=== PATIENT | female | born 1950 | race Two or more races ===

== ENCOUNTER → 2022-05-17 | Day surgery (SDC) | payer OTHER ==
[2022-05-15 13:38] LABS: Basophils # (auto) 0.1 10 ^3/uL (0-0.2); Basophils % (auto) 1.6 % (0.0-2.0); Eosinophils # (auto) 0.2 10 ^3/uL (0-0.8); Lymphocytes # (auto) 1.3 10 ^3/uL (0.4-5.4); Monocytes # (auto) 0.3 10 ^3/uL (0-1.3)
[2022-05-15 13:40] LABS: Eosinophils % (auto) 2.9 % (0.0-7.0); Hematocrit 36.7 % (36.0-46.0); Hemoglobin 12.3 g/dL (12.2-16.2); Lymphocytes % (auto) 22.1 % (10.0-50.0); Mean Corpuscular Hemoglobin 26.9 pg (28.0-32.0); Mean Corpuscular Hgb Conc. 33.6 g/dL (32.0-36.0); Monocytes % (auto) 5.1 % (0.0-12.0); Neutrophils % (auto) 68.3 % (37.0-80.0); Nucleated Red Blood Cells % 0.2 %; Red Blood Cells 4.59 10^6/uL (4.0-5.20); White Blood Cell 5.9 10^3/uL (4.4-10.8)
[2022-05-15 13:59] LABS: INR 0.92 (0.9-1.15); Partial Thromboplastin Time 27.8 sec (24.6-33.4)
[2022-05-15 14:18] LABS: Albumin 3.7 g/dL (3.4-5.0); Calcium 9.2 mg/dL (8.5-10.1); Potassium 4.3 mmol/L (3.5-5.1)
[2022-05-15 14:21] LABS: Bilirubin, Total 0.4 mg/dL (0.2-1.0); Total Protein 7.7 g/dL (6.4-8.2)
[2022-05-15 14:40] LABS: Urine Bacteria FEW /hpf (None Seen); Urine Blood TRACE /uL (Negative); Urine Specific Gravity 1.028 (1.001-1.035); Urine WBC 1 /hpf (0 - 5)
[~2022-05-17] VITALS: Ht 167.6 cm; Wt 63.5 kg
[~2022-05-17] MED LIST: ALPR0.5T PO; CITA10TA8 PO; DexAMETHasone SOD PHOS 10MG/1ML VIAL INJ ONE; GLYCOPYRROLATE 0.2 MG/ML 1ML VIAL ONE; HYDROmorphone HCL 2 MG/ML VL/or syr IV PRN; KETOROLAC TROMETH 30 MG/ML 1ML VIAL ONE; LIDOCAINE 2% (LOCAL ANESTH.) PF 5ml SDV ONE; MEPERIDINE HCL (25 MG/ML) 1ML VIAL ONE; MIDAZOLAM HCL 2MG/2ML 2ml VIAL (1mg/ml) ONE; NEOMYCIN-BACITRACIN-POLYM 15GM TOP OINT TOP ONE; ONDANSETRON HCL 4 MG/2 ML VIAL IV PRN; ONDANSETRON HCL 4 MG/2 ML VIAL ONE; PROPOFOL 10 MG/ML 20 ML IV ONE; SERT50TA PO; ePHEDrine SULFATE 50 MG/ML AMP ONE; fentaNYL CITRATE 100 MCG/2 ML VL ONE; levoFLOXacin 500MG 100 ML IV ONE
[2022-05-17 11:08] VITALS: BP 148/60
== END | disposition home or self-care (01) ==
LOC: SUR 08:06
PROVIDERS: ATTEND Surgery
DX: C44.319 Basal cell carcinoma of skin of other parts of face (principal); F41.9 Anxiety disorder, unspecified; Z88.5 Allergy status to narcotic agent; Z88.0 Allergy status to penicillin; Z88.2 Allergy status to sulfonamides; Z90.710 Acquired absence of both cervix and uterus; Z98.890 Other specified postprocedural states; Z20.822 Contact with and (suspected) exposure to COVID-19
CPT/HCPCS: 11646; 36415; 80053; 81001; 85025; 85610; 85730; J1100; J1885; J1956; J2001; J2175; J2250; J2405; J2704; J3010; U0003

== ENCOUNTER 2023-04-08 14:06 | Inpatient (IN) | payer OTHER ==
[~2023-04-08] VITALS: Ht 165.1 cm; Wt 76.1 kg
[~2023-04-08 14:06] MED LIST changes: -DexAMETHasone SOD PHOS 10MG/1ML VIAL INJ ONE; -GLYCOPYRROLATE 0.2 MG/ML 1ML VIAL ONE; -HYDROmorphone HCL 2 MG/ML VL/or syr IV PRN; -KETOROLAC TROMETH 30 MG/ML 1ML VIAL ONE; -LIDOCAINE 2% (LOCAL ANESTH.) PF 5ml SDV ONE; -MEPERIDINE HCL (25 MG/ML) 1ML VIAL ONE; -MIDAZOLAM HCL 2MG/2ML 2ml VIAL (1mg/ml) ONE; -NEOMYCIN-BACITRACIN-POLYM 15GM TOP OINT TOP ONE; -ONDANSETRON HCL 4 MG/2 ML VIAL IV PRN; -ONDANSETRON HCL 4 MG/2 ML VIAL ONE; -PROPOFOL 10 MG/ML 20 ML IV ONE; -ePHEDrine SULFATE 50 MG/ML AMP ONE; -fentaNYL CITRATE 100 MCG/2 ML VL ONE; -levoFLOXacin 500MG 100 ML IV ONE
[2023-04-08] MEDS: ACETAMINOPHEN 500 MG TAB PO ONE (17:10)
[2023-04-08] MEDS: ONDANSETRON HCL 4 MG/2 ML VIAL IV ONE (21:09)
[2023-04-08] MEDS: MORPHINE SULFATE INJ 2 MG/ml SYRG IV ONE (21:10)
[2023-04-08 21:45] LABS: Eosinophils # (auto) 0 10 ^3/uL (0-0.8); Eosinophils % (auto) 0.1 % (0.0-7.0); Hematocrit 40.4 % (36.0-46.0); Hemoglobin 13.1 g/dL (12.2-16.2); Lymphocytes # (auto) 0.9 10 ^3/uL (0.4-5.4); Monocytes # (auto) 0.7 10 ^3/uL (0-1.3); Nucleated Red Blood Cells % 0.1 %
[2023-04-08 21:46] LABS: Basophils # (auto) 0.1 10 ^3/uL (0-0.2); Basophils % (auto) 0.8 % (0.0-2.0); Lymphocytes % (auto) 6.4 % (10.0-50.0); Mean Corpuscular Hemoglobin 26.4 pg (28.0-32.0); Mean Corpuscular Hgb Conc. 32.3 g/dL (32.0-36.0); Mean Corpuscular Volume 81.7 fL (80.0-100.0); Neutrophils # (auto) 11.8 10 ^3/uL (1.6-8.6); Neutrophils % (auto) 87.7 % (37.0-80.0); Red Blood Cells 4.95 10^6/uL (4.0-5.20); Red Cell Distribution Width 15.4 % (11.8-14.3); White Blood Cell 13.5 10^3/uL (4.4-10.8)
[2023-04-08 21:57] LABS: INR 0.99 (0.9-1.15); Partial Thromboplastin Time 29.3 SEC (24.5-34.5); Prothrombin Time 10.4 sec (9.3-11.8)
[2023-04-08 22:00] LABS: Alkaline Phosphatase 76 U/L (46-116); Anion Gap 12 (5-15); Aspartate Aminotransferase 18 U/L (13-40); BUN/Creatinine Ratio 13.6 (10.0-20.0); Blood Urea Nitrogen 12 mg/dL (9-23); Calcium 9.8 mg/dL (8.7-10.4); Carbon Dioxide 23 mmol/L (20-30); Chloride 99 mmol/L (98-107); Glucose 111 mg/dL (74-106); Potassium 3.5 mmol/L (3.5-5.1); Sodium 134 mmol/L (136-145)
[2023-04-08 22:01] LABS: Bilirubin, Total 0.9 mg/dL (0.2-1.0)
[2023-04-08 22:07] LABS: Alanine Aminotransferase < 9 U/L (7-40)
[2023-04-08] MEDS: MORPHINE SULFATE 4 MG/ML SYR/VIAL IV ONE (23:27)
[2023-04-09] VITALS (9 sets, daily range): BP systolic 115–175; BP diastolic 58–76; PULSE 74–100; RESP 15–21; TEMP 97.6–97.8; O2SAT 90–99
[2023-04-09 01:03] LABS: Urine Bacteria FEW /hpf (None Seen); Urine Blood 1+ /uL (Negative); Urine Clarity HAZY (Clear); Urine Color Yellow (Yellow); Urine Hyaline Cast MOD /lpf (0 - 2); Urine Mucus FEW (None Seen); Urine Protein, UAD 3+ (Negative); Urine Specific Gravity 1.029 (1.001-1.035); Urine WBC 97 /hpf (0 - 5)
[2023-04-09] MEDS ORDERED: ACETAMINOPHEN 325 MG TAB PO PRN (01:30)
[2023-04-09] MEDS ORDERED: MORPHINE SULFATE INJ 2 MG/ml SYRG IV PRN ×2 (01:30→13:45)
[2023-04-09] MEDS: levoFLOXacin 500MG 100 ML IV SCH (02:31)
[2023-04-09] MEDS ORDERED: DexAMETHasone SOD PHOS 10MG/1ML VIAL INJ ONE (10:58)
[2023-04-09] MEDS ORDERED: MIDAZOLAM HCL 2MG/2ML 2ml VIAL (1mg/ml) ONE (10:58)
[2023-04-09] MEDS ORDERED: ONDANSETRON HCL 4 MG/2 ML VIAL ONE (10:58)
[2023-04-09] MEDS ORDERED: SODIUM CHLORIDE LOCK 10 ML ONE (10:58)
[2023-04-09] MEDS ORDERED: KETAMINE 50mg/ML 1ml syringe ONE (10:58)
[2023-04-09] MEDS ORDERED: fentaNYL CITRATE 100 MCG/2 ML VL ONE (10:58)
[2023-04-09] MEDS ORDERED: EPINEPHrine HCL 1 MG/1 ML AMP ONE (10:58)
[2023-04-09] MEDS ORDERED: PROPOFOL 10 MG/ML 20 ML IV ONE (10:58)
[2023-04-09] MEDS: MORPHINE SULF PF 5 MG/10 ML VIAL ONE (12:51)
[2023-04-09] MEDS: BUPIVACAINE 0.25% INJ 50ML VIAL ONE (12:51)
[2023-04-09] MEDS: KETOROLAC TROMETH 30 MG/ML 1ML VIAL ONE (12:51)
[2023-04-09] MEDS: VANCOMYCIN HCL 1000 MG VL ONE (12:51)
[2023-04-09] MEDS: LACTATED RINGER'S 1,000 ML IV SCH (13:15)
[2023-04-09] MEDS ORDERED: HYDROmorphone HCL 2 MG/ML VL/or syr IV PRN ×3 (13:15→13:45)
[2023-04-09] MEDS ORDERED: METOCLOPRAMIDE HCL 5MG/ml INJ 2ml VIAL IV PRN (13:45)
[2023-04-09] MEDS: ceFAZolin 1GM/50ML 50 ML IV SCH (14:30)
[2023-04-09] MEDS: TRANEXAMIC ACID 20 ML ONE (15:09)
[2023-04-09] MEDS: ceFAZolin 2 GM/D5W100ml 100 ML IV ONE (15:09)
[2023-04-09] MEDS: TETRACAINE 1% INJ 2 ML VIAL IJ ONE (15:10)
[2023-04-09] MEDS: BUPIVACAINE HCL 50 ML ONE (15:10)
[2023-04-09] MEDS: BUPIVACAINE 0.5% P/F INJ 10 ML VIAL ONE ×2 (15:10)
[2023-04-09] MEDS: ONDANSETRON HCL 4 MG/2 ML VIAL IV PRN (15:40)
[2023-04-10] VITALS (8 sets, daily range): BP systolic 122–152; BP diastolic 57–72; PULSE 90–109; RESP 17–18; TEMP 98.2–99.1; O2SAT 90–97
[2023-04-10 06:03] LABS: Hematocrit 35.3 % (36.0-46.0); Hemoglobin 11.4 g/dL (12.2-16.2)
[2023-04-10] MEDS: ENOXAPARIN SOD 40 MG/0.4 ML SYRINGE SC SCH (09:28)
[2023-04-10] MEDS: CITALOPRAM HYDROBR 20 MG TAB PO SCH (09:28)
[2023-04-10] MEDS: OXYCODONE W/ ACETAMINOPHEN 5/325MG TABLET PO PRN (19:25)
[2023-04-11 04:55] VITALS: BP 104/82; PULSE 90; RESP 16; TEMP 97.9; O2SAT 90
[2023-04-11 06:14] LABS: Hematocrit 32.8 % (36.0-46.0); Hemoglobin 10.9 g/dL (12.2-16.2)
[2023-04-11 08:00] VITALS: RESP 18
[2023-04-11 08:33] VITALS: BP 123/68; PULSE 95; RESP 16; TEMP 98.6; O2SAT 92
== END 2023-04-11 08:20 | DRG 522 ==
LOC: EDBD 14:06 → ER 14:06 → TELE 04-09 01:29 → TELE-EAST 04-09 04:01
PROVIDERS: ADMIT Internal Medicine; ATTEND Internal Medicine
PROC: 0SR90JZ Replacement of Right Hip Joint with Synthetic Substitute, Open Approach (ICD-10-PCS; principal; 2023-04-09 11:47)
DX: S72.011A Unspecified intracapsular fracture of right femur, initial encounter for closed fracture (principal); N39.0 Urinary tract infection, site not specified; F32.9 Major depressive disorder, single episode, unspecified; F41.9 Anxiety disorder, unspecified; W01.0XXA Fall on same level from slipping, tripping and stumbling without subsequent striking against object, initial encounter; Z88.5 Allergy status to narcotic agent; Z88.0 Allergy status to penicillin; Z88.2 Allergy status to sulfonamides; Z88.8 Allergy status to other drugs, medicaments and biological substances; Y93.89 Activity, other specified; Y92.89 Other specified places as the place of occurrence of the external cause; Y99.8 Other external cause status; Z83.3 Family history of diabetes mellitus
CPT/HCPCS: 36415; 71045; 72170; 73501; 80053; 81001; 85014; 85018; 85025; 85610; 85730; 86850; 86900; 86901; 93306; 97110; 97163; 97530; A4565; G0378; J0171; J1100; J1885; J1956; J2250; J2405; J2704; J3490